=== PATIENT | male | born 1955 | race Caucasian/White ===

== ENCOUNTER → 2016-12-13 | Outpatient (CLI) | payer OTHER | END | disposition home or self-care (01) | LOC: PCVCIMAG 11:24 | PROVIDERS: ATTEND Internal Medicine Cardiovascular Disease | DX: I10 Essential (primary) hypertension (principal); E78.00 Pure hypercholesterolemia, unspecified; R01.1 Cardiac murmur, unspecified; R06.00 Dyspnea, unspecified | CPT/HCPCS: 93017; 93306 ==

== ENCOUNTER → 2018-12-18 | Outpatient (CLI) | payer BC, OTHER ==
--- NOTE | 2018-12-18 15:38 | PCVCIMAG ---
APPROVED REPORT Laterality: Bilateral Indications Bruit Doppler Spectral Velocity Analysis PSV / EDVPSV / EDV ECA (R) 85 / 17 cm/sECA (L) 82 / 15 cm/s dICA (R) 54 / 21 cm/sdICA (L) 50 / 22 cm/s Aguilar (R) 56 / 22 cm/smICA (L) 66 / 24 cm/s pICA (R) 47 / 15 cm/spICA (L) 70 / 23 cm/s Bulb (R) 70 / 19 cm/sBulb (L) 71 / 20 cm/s dCCA (R) 99 / 26 cm/sdCCA (L) 81 / 23 cm/s mCCA (R) 96 / 18 cm/smCCA (L) 89 / 23 cm/s Vert (R) 45 / 16 cm/sVert (L) 46 / 17 cm/s ICA/CCA 0.57ICA/CCA 0.86 Findings The right carotid bulb has minimal plaque. The right proximal internal carotid artery shows no significant stenosis. The right common carotid artery shows no significant stenosis. The right external carotid artery shows no significant stenosis. The left carotid bulb has mild plaque. The left proximal internal carotid artery shows no significant stenosis. The left common carotid artery shows no significant stenosis. The left external carotid artery shows no significant stenosis. Conclusion 1. Mild bilateral plaquing without significant stenosis 2. Antegrade vertebral flow
--- NOTE | 2018-12-18 16:05 | PCVCIMAG ---
APPROVED REPORT Study performed: 12/18/2018 15:03:40 Exam: Stress Echocardiogram Indication: Hyperlipidemia, Hypertension, Syncope Patient Location: Echo lab Stress Nurse: Lo Lau RN Status: routine Ht: 5 ft 11 in HR: 72 bpm BP: 132/72 mmHg Rhythm: NSR Medical History Medical History: Hyperlipidemia, HTN Procedure The patient underwent an Exercise Stress Test using the Real Protocol. Blood pressure, heart rate, and EKG were monitored. An Echocardiogram was performed by service center technician in four stages in quad fashion. At peak stress, four selected images were obtained and placed side by side with resting images for comparison. Stress Test Details Stress Test: Exercise stress testing was performed using a Real protocol. HR Resting HR: 72 bpmMax Heart Rate (APMHR): 159 bpm Max HR Achieved: 153 bpmTarget HR (85% APMHR): 135 bpm % of APMHR: 96 Recovery HR: 94 bpm HR response to stress: Normal HR response to stress BP Resting BP: 132/76 mmHg Max BP: 190/76 mmHg Recovery BP: 156/70 mmHg BP response to stress: Normal blood pressure response to stress. ECG Resting ECG: Sinus Rhythm Stress ECG: Sinus Rhythm ST Change: Non-ischemic Recovery ECG: Sinus Rhythm Clinical Reason for Termination: Maximal effort Exercise duration: 8 min 59 sec Pre-Stress Echo The resting Echocardiogram showed normal left ventricular contractility with an estimated Ejection Fraction of about 55-60%. Normal wall motion in all segments on baseline images. Post-Stress Echo The stress Echocardiogram showed normal left ventricular contractility with an estimated Ejection Fraction of about 60-65%. Normal augmentation of wall motion in all segments on post stress images. Clinical No clinical or ECG evidence for ischemia. Conclusion Clinical Response: Non-ischemic Exercise Capacity: Average Stress ECG Response: Non-ischemic Stress Echo Images: Non-ischemic The left ventricle is normal in size and wall thickness in both the rest and stress images. Other Information Study Quality: Good <Conclusion> The left ventricle is normal in size and wall thickness in both the rest and stress images.
== END | disposition home or self-care (01) ==
LOC: PCVCIMAG 14:34
PROVIDERS: ATTEND Internal Medicine Cardiovascular Disease
DX: I65.23 Occlusion and stenosis of bilateral carotid arteries (principal); I10 Essential (primary) hypertension; E78.5 Hyperlipidemia, unspecified; R09.89 Other specified symptoms and signs involving the circulatory and respiratory systems; R55 Syncope and collapse
CPT/HCPCS: 93325; 93351; 93880